=== PATIENT | female | born 1985 | race Asian ===

== ENCOUNTER 2018-09-26 15:59 | Emergency (ER) | payer SELFPAY ==
[~2018-09-26] VITALS: Ht 142.2 cm; Wt 82.4 kg
[2018-09-26 16:19] VITALS: BP 125/87
--- NOTE | 2018-09-26 16:38 | NUR ---
FIRST CONTACT WITH PT, PT IN NAD. PT ASKED HOW MANY WEEKS -PT STATES "I THINK FOUR OR FIVE MONTHS". PT ASKED OF DUE DATE AND DOESN'T KNOW. LMP 04/06/19 WHICH INDICATES 22 WEEKS SIX DAYS. L&D CALLED, REPORT REGARDING PT SX PROVIDED. PT TRANSPORTED TO L&D BY ASSET ANALYST.
== END 2018-09-26 16:46 | disposition left against medical advice (07) ==
LOC: ED 16:41
DX: O20.9 Hemorrhage in early pregnancy, unspecified (principal); Z3A.16 16 weeks gestation of pregnancy; R10.9 Unspecified abdominal pain; Z53.21 Procedure and treatment not carried out due to patient leaving prior to being seen by health care provider

== ENCOUNTER 2018-09-26 18:30 | Emergency (ER) | payer SELFPAY ==
[~2018-09-26] VITALS: Ht 142.2 cm; Wt 79.8 kg
--- NOTE | 2018-09-26 18:42 | NUR ---
PT TRANSFERED FROM L&D TO ER W/ CO ELEVATED GLUCOSE IN URINE. PT EVALUATED IN L&D FOR CO VAGINAL BLEEDING X LAST NIGHT, 2PADS/HR. . LMP: MARCH, WITH POSITIVE HOME TEST IN MAY/JUL. PER L&D STAFF, NO PROOF OF VIA ULTRASOUND. UA GLUCOSE 500. NO HX OF DM. PT SITTING UP IN [facility], DENIES CP/SOB/POLYURIA/POLYDIPSIA/N/V. MM MOIST. BP/SPO2 MONITOR IN PLACE.
--- NOTE | 2018-09-26 18:51 | NUR ---
REPORT TO JUAN GUZMÁN
--- NOTE | 2018-09-26 18:58 | NUR ---
REPORT RECEIVEDF ROSALIO GALVAN RN. PT RESTING ON GURNEY, DENIES PAIN OR NAUSEA, SIDERAILS UP X2, CALL LIGHT WITHIN REACH. AWAITING LAB RESULTS
[2018-09-26 19:07] LABS: BASOPHILS # (AUTO) 0.02 x10^3/uL (0-0.1); BASOPHILS % (AUTO) 0 % (0-1); EOSINOPHILS # (AUTO) 0.11 x10^3/uL (0-0.4); EOSINOPHILS % (AUTO) 1 % (1-7); LYMPHOCYTES # (AUTO) 1.86 x10^3/uL (1-3.4); LYMPHOCYTES % (AUTO) 21 % (22-44); MD NO; MEAN CORPUSCULAR HEMOGLOBIN 27.2 pg (27.0-34.8); MEAN CORPUSCULAR HGB CONC 33.6 g/dL (32.4-35.8); MEAN CORPUSCULAR VOLUME 80.9 fL (80-100); MEAN PLATELET VOLUME 8.4 fL (7.4-10.4); MONOCYTES % (AUTO) 5 % (2-9); NEUTROPHILS % (AUTO) 73 % (42-75); PLATELET COUNT 283 x10^3/uL (130-400); RED BLOOD COUNT 5.35 x10^6/uL (3.82-5.3); RED CELL DISTRIBUTION WIDTH 13.2 % (9.6-15.2)
[2018-09-26 19:19] LABS: ALANINE AMINOTRANSFERASE 39 U/L (12-78); ALBUMIN 3.5 g/dL (3.4-5.0); ANION GAP 7 mmol/L (5-15); CALCIUM 8.5 mg/dL (8.5-10.1); CHLORIDE 108 mmol/L (98-107); CREATININE 0.68 mg/dL (0.55-1.02)
[2018-09-26 19:24] LABS: ALKALINE PHOSPHATASE 93 U/L (45-117); BILIRUBIN,TOTAL 0.4 mg/dL (0.2-1.0); TOTAL PROTEIN 7.8 g/dL (6.4-8.2)
[2018-09-26 19:55] VITALS: BP 130/76
--- NOTE | 2018-09-26 19:55 | NUR ---
CARE ASSUMED FOR DC. PT DC'D HOME WITH UNDERSTANDING OF INSTRUCTIONS. PT ESCORTED TO DC DESK.
== END 2018-09-26 19:57 | disposition home or self-care (01) ==
LOC: ED 19:31
DX: R73.09 Other abnormal glucose (principal)
CPT/HCPCS: 36415; 80053; 83690; 84703; 85025; 99283